=== PATIENT | male | born 2000 | race Two or more races ===

== ENCOUNTER 2024-10-05 00:25 | Emergency (ER) | payer OTHER ==
[2024-10-05 00:51] VITALS: BP 134/71; PULSE 65; RESP 17; TEMP 98.2; BMI 19.5
[2024-10-05] MEDS ORDERED: ACETAMINOPHEN INJECTION 100 ML ONE (01:20)
[2024-10-05] MEDS ORDERED: MAG HYDROX/AL HYDROX/SIMETH 30 ML UNIT-DOSE CUP ONE (01:20)
[2024-10-05] MEDS ORDERED: ONDANSETRON 4 MG/2 ML VIAL ONE (01:21)
[2024-10-05] MEDS ORDERED: MAGNESIUM CITRATE 300 ML BOTTLE ONE (01:22)
[2024-10-05] MEDS: ACETAMINOPHEN 1000 MG/100 ML BAG IVPB ONE (01:28)
[2024-10-05] MEDS: MAG HYDROX/AL HYDROX/SIMETH 30 ML UNIT-DOSE CUP PO ONE (01:28)
[2024-10-05 01:31] LABS: BASO % 0.5 % (0-2.0); EOS % 1.9 % (0-4.5); HEMATOCRIT 45.2 % (35.4-49); HEMOGLOBIN 15.7 GM/dL (11.7-16.9); LYMPH % 31.9 % (8-40); MCH 29.2 pg (25.7-33.7); MCHC 34.7 g/dl (32.0-35.9); MEAN CELL VOLUME 84.1 fl (80-96); MEAN PLT VOLUME 7.8 fl (7.5-11.1); MONO % 9.5 % (3.8-10.2); NEUT % 56.2 % (42.8-82.8); PLATELET COUNT 227 10^3/uL (134-434); RBC 5.37 M/mm3 (4.00-5.60); RDW 13.3 % (11.9-15.9); WHITE BLOOD COUNT 6.3 K/mm3 (4.0-10.0)
[2024-10-05] MEDS: MAGNESIUM CITRATE 300 ML BOTTLE PO ONE (01:49)
[2024-10-05] MEDS: ONDANSETRON 4 MG/2 ML VIAL IVPB ONE (01:49)
[2024-10-05] MEDS: SODIUM CHLORIDE 0.9% 500 ML INFUS.BAG IV ONE (01:49)
[2024-10-05 01:58] LABS: POTASSIUM 4.6 mmol/L (3.5-5.1)
[2024-10-05 02:00] LABS: ALBUMIN 4.2 g/dl (3.4-5.0); CALCIUM 9.3 mg/dL (8.5-10.1)
[2024-10-05 02:01] LABS: BLOOD UREA NITROGEN 12.2 mg/dL (7-18)
[2024-10-05 02:04] LABS: CREATININE 0.7 mg/dL (0.55-1.3)
[2024-10-05 02:05] LABS: BILIRUBIN,TOTAL 0.5 mg/dL (0.2-1); TOT PROT 7.1 g/dl (6.4-8.2)
[2024-10-05] MEDS ORDERED: SUCRALFATE 1 GM TABLET (FP) ONE (02:40)
[2024-10-05] MEDS: SUCRALFATE 1 GM/10 ML UNIT DOSE CUPS PO ONE (02:41)
== END 2024-10-05 02:41 | disposition home or self-care (01) ==
LOC: JER 00:25
PROC: 3E033NZ Introduction of Analgesics, Hypnotics, Sedatives into Peripheral Vein, Percutaneous Approach (ICD-10-PCS; principal; 2024-10-05)
PROC: 3E033GC Introduction of Other Therapeutic Substance into Peripheral Vein, Percutaneous Approach (ICD-10-PCS; 2024-10-05)
DX: K29.01 Acute gastritis with bleeding (principal); R10.84 Generalized abdominal pain; R11.2 Nausea with vomiting, unspecified; Z20.822 Contact with and (suspected) exposure to COVID-19
CPT/HCPCS: 0241U-QW; 36415; 80053; 83690; 85025; 96374; 96375; 99284-25; J0131